=== PATIENT | female | born 1960 | race Caucasian/White ===

== ENCOUNTER 2021-02-20 08:58 | Day surgery (SDC) | payer BC ==
[~2021-02-20 08:58] MED LIST: Lactated Ringers 1,000 ML IV SCH; Lidocaine 2% 5 ML SDV ONE; Ondansetron 4 MG/2 ML SDV ONE; Sodium Chloride 0.9% 10 ML Syringe FLUSH PRN; Sodium Chloride 0.9% 2.5 ML Syringe FLUSH PRN; Sodium Chloride 0.9% 20 ML SDV IV PRN; fentaNYL 100 MCG/2 ML SDV ONE; propofoL 50 ML ONE
--- NOTE | 2021-02-20 09:33 | PCM.PREANE ---
Preanesthetic Assessment - Anesthesia/Transfusion/Family Hx Anesthesia History: Prior Anesthesia Without Reaction Other Type of Anesthesia Reaction Comment: DENIES ANY PROBLEMS WITH ANESTHESIA Transfusion History: No Prior Transfusion(s) - Review of Systems General: No Symptoms Pulmonary: No Symptoms Cardiovascular: No Symptoms Gastrointestinal: No Symptoms Neurological: No Symptoms Other: Reports: Anxiety - Physical Assessment NPO Status Date: 02/20/21 NPO Status Time: 00:00 Vital Signs: Last Vital Signs Temp 96.6 F L 02/20/21 09:13 Pulse 102 H 02/20/21 09:13 Resp 16 02/20/21 09:13 BP 120/84 02/20/21 09:13 Pulse Ox 98 02/20/21 09:13 Height: 5 ft 3 in Weight: 191 lb ASA Class: 2 Mental Status: Alert & Oriented x3 Airway Class: Mallampati = 2 Dentition: Reports: [place](s), Implants Thyro-Mental Finger Breadths: 2 Mouth Opening Finger Breadths: 3 ROM/Head Extension: Full Lungs: Clear to Auscultation, Normal Respiratory Effort Cardiovascular: Regular Rate, Regular Rhythm - Allergies Allergies/Adverse Reactions: Allergies Allergy/AdvReac Type Severity Reaction Status Date / Time No Known Allergies Allergy Verified 02/14/21 11:29 - Acknowledgements Anesthesia Type Planned: General Anesthesia Pt an Appropriate Candidate for the Planned Anesthesia: Yes Alternatives and Risks of Anesthesia Discussed w Pt/Guardian: Yes Pt/Guardian Understands and Agrees with Anesthesia Plan: Yes PreAnesthesia Questionnaire HEENT History: Reports: Other (See Below) Other HEENT History: wears glasses, contacts Cardiovascular History: Reports: None Respiratory History: Reports: None Gastrointestinal History: Reports: Colon Polyp, GERD Genitourinary History: Reports: None HUMAN RESOURCE OFFICER History: Reports: None Musculoskeletal History: Reports: Fracture Other Musculoskeletal History: hx of fx foot Neurological History: Reports: MS, Other (See Below) Other Neuro History: restless leg syndrome Psychiatric History: Reports: Anxiety, Depression Endocrine/Metabolic History: Reports: Obesity/BMI 30+ Other Endocrine/Metabolic History: MS Hematologic History: Reports: B12 Deficiency Immunologic History: Reports: None Oncologic (Cancer) History: Reports: None Dermatologic History: Reports: None - Infectious Disease History Infectious Disease History: Reports: None - Past Surgical History Head Surgeries/Procedures: Reports: None HEENT Surgical History: Reports: Oral Surgery, Tonsillectomy Other HEENT Surgeries/Procedures: has 6 upper dental implants- 3 on each side, has 1 lower dental implant GI Surgical History: Reports: Bariatric Procedure, Colonoscopy Other GI Surgeries/Procedures: has implanted gastric lap band Female Surgical History: Reports: Hysterectomy, Salpingo-Oophorectomy Neurological Surgical History: Reports: Spinal Fusion Musculoskeletal Surgical History: Reports: ORIF Other Musculoskeletal Surgeries/Procedures:: ORIF foot- no hardware - SUBSTANCE USE Tobacco Use Status *Q: Former Tobacco User Tobacco Use Within Last Twelve Months: No Recreational Drug Use History: No - HOME MEDS Home Medications: Home Meds Cyanocobalamin (Vitamin B12) [Vitamin B12] 1,000 mcg IM ASDIRECTED 02/14/21 [History] LORazepam [Ativan] 0.5 mg PO BEDTIME 02/14/21 [History] Omeprazole 20 mg PO DAILY PRN 02/14/21 [History] Teriflunomide [Aubagio] 14 mg PO DAILY 02/14/21 [History] Venlafaxine HCl 75 mg PO TID 02/14/21 [History] cloNIDine HCL [Clonidine HCl] 0.1 mg PO BID 02/14/21 [History] rOPINIRole HCl [Ropinirole ER] 1 mg PO BEDTIME 02/14/21 [History] - CURRENT (IN HOUSE) MEDS Current Meds: Current Medications Lactated Ringer's (Ringers, Lactated) 1,000 mls @ 125 mls/hr IV ASDIRECTED [facility] Last Admin: 02/20/21 09:15 Dose: 125 mls/hr Documented by: Sodium Chloride (Sodium Chloride 0.9% 10 Ml Syringe) 10 ml FLUSH ASDIRECTED PRN PRN Reason: Keep Vein Open Sodium Chloride (Sodium Chloride 0.9% 2.5 Ml Syringe) 2.5 ml FLUSH ASDIRECTED PRN PRN Reason: Keep Vein Open Sodium Chloride (Sodium Chloride 0.9% 10 Ml Syringe) 10 ml FLUSH ASDIRECTED PRN PRN Reason: Keep Vein Open Sodium Chloride (Sodium Chloride 0.9% 2.5 Ml Syringe) 2.5 ml FLUSH ASDIRECTED PRN PRN Reason: Keep Vein Open Sodium Chloride (Sodium Chloride 0.9% 20 Ml Sdv) 10 ml IV ASDIRECTED PRN PRN Reason: IV Use Discontinued Medications Fentanyl (Fentanyl 100 Mcg/2 Ml Sdv) Confirm Administered Dose 100 mcg .ROUTE .STK-MED ONE Stop: 02/20/21 08:52 Propofol (Diprivan 50 Ml) Confirm Administered Dose 50 mls @ as directed .ROUTE .STK-MED ONE Stop: 02/20/21 07:17 Lidocaine (Lidocaine 2% 5 Ml Sdv) Confirm Administered Dose 5 ml .ROUTE .STK-MED ONE Stop: 02/20/21 08:56 Ondansetron HCl (Ondansetron 4 Mg/2 Ml Sdv) Confirm Administered Dose 4 mg .ROUTE .STK-MED ONE Stop: 02/20/21 08:56
[2021-02-20] MEDS ORDERED: fentaNYL 100 MCG/2 ML SDV ONE (10:12)
[2021-02-20] MEDS ORDERED: Midazolam 1 MG/ML 2 ML SDV ONE (10:15)
--- NOTE | 2021-02-20 10:55 | PCM.POSTAN ---
POST ANESTHESIA ASSESSMENT - MENTAL STATUS Mental Status: Alert, Oriented - VITAL SIGNS Vital Signs: Last Vital Signs Temp 96.6 F L 02/20/21 09:13 Pulse 102 H 02/20/21 09:13 Resp 16 02/20/21 09:13 BP 120/84 02/20/21 09:13 Pulse Ox 98 02/20/21 09:13 - RESPIRATORY Respiratory Status: Respiratory Rate WNL, Airway Patent, O2 Saturation Stable - CARDIOVASCULAR CV Status: Pulse Rate WNL, Blood Pressure Stable - GASTROINTESTINAL GI Status: No Symptoms - POST OP HYDRATION Hydration Status: Adequate & Stable
--- NOTE | 2021-02-20 10:55 | PCM48HPAN ---
Post Anesthesia Note - EVALUATION WITHIN 48HRS OF ANESTHETIC Vital Signs in Normal Range: Yes Patient Participated in Evaluation: Yes Respiratory Function Stable: Yes Airway Patent: Yes Cardiovascular Function Stable: Yes Hydration Status Stable: Yes Pain Control Satisfactory: Yes Nausea and Vomiting Control Satisfactory: Yes Mental Status Recovered: Yes Vital Signs: Last Vital Signs Temp 96.6 F L 02/20/21 09:13 Pulse 102 H 02/20/21 09:13 Resp 16 02/20/21 09:13 BP 120/84 02/20/21 09:13 Pulse Ox 98 02/20/21 09:13
--- NOTE | 2021-02-20 11:02 | PCM.OPNOTE ---
- General Post-Op/Procedure Note Date of Surgery/Procedure: 02/20/21 Operative Procedure(s): Diagnostic EGD and screening colonoscopy Findings: Presbyesophagus with food and liquid throughout. Nodular chronically inflamed appearance of esophagus. Unable to pass scope through the band. Transverse colon polyp, sigmoid colon polyp x 2 Pre Op Diagnosis: Reflux, history of colon polyp Post-Op Diagnosis: Presbyesophagus, esophagitis, transverse colon polyp x 1, sigmoid colon polyp x 2 Anesthesia Technique: General Mask Primary Surgeon: Jessika Banerjee Condition: Good
[2021-02-20 11:03] VITALS: BP 98/55; PULSE 72
--- NOTE | 2021-02-20 16:23 | OR ---
SURGEON: JESSIKA BANERJEE MD DATE OF PROCEDURE: 02/20/2021 PREOPERATIVE DIAGNOSES: 1. Reflux. 2. History of colon polyps. POSTOPERATIVE DIAGNOSES: 1. Presbyesophagus. 2. Esophagitis. 3. Transverse colon polyp x1. 4. Sigmoid colon polyp x2. PROCEDURES PERFORMED: Diagnostic esophagogastroduodenoscopy and screening colonoscopy. PRIMARY SURGEON: Jessika Banerjee MD ANESTHESIA: General mask. INSTRUMENTS USED: Olympus endoscope and colonoscope. EXTENT OF EXAM: To the proximal stomach, to the duodenum. PREPARATION: Good. LIMITATIONS: Obstruction at the level of the gastric band in the stomach. COMPLICATIONS: None. INDICATIONS: Patient is a 60-year-old female who presented to my clinic in need of a repeat colonoscopy for a history of colon polyps. Upon gathering the patient's history, it was discovered that she has a gastric band in place. When I asked her about this, she did note some reflux-type symptoms. I explained that it would probably benefit her to undergo a diagnostic EGD to look for any signs of reflux. The patient verbalized understanding. I explained both procedures, the expected perioperative course, and the risks. She verbalized understanding and wished to proceed. PROCEDURE IN DETAIL: The patient was brought in to the endoscopy suite and placed in a left lateral decubitus position. A time-out was completed verifying the patient's name, age, date of , allergies, and procedure to be performed. Anesthesia was induced. Continuous oxygen was provided via nasal cannula throughout the procedure. After adequate sedation was achieved, a well-lubricated endoscope was placed in the patient's mouth and advanced under direct visualization. Immediately upon entering the esophagus, I noted a large amount of food and liquid within the esophagus. I quickly suctioned this out and the patient was positioned in a way to prevent aspiration. I continued to suction out as much food and fluid as I could. The esophagus was dilated and appeared chronically inflamed with nodularity throughout the length of the esophagus. Upon entering the stomach, the patient was noted to have a normal-appearing pouch, however, the gastric band was so tight that I could not transverse through the opening. There was solid food and liquid within the proximal gastric pouch. The decision was made to not attempt to proceed any further. The scope was brought into the esophagus and at 30 cm from the teeth, a biopsy was taken and sent to Pathology for histologic review. Multiple photographs were taken throughout the case. The scope was removed and this portion of procedure terminated. A digital rectal exam was performed. This exam was grossly normal. A well-lubricated colonoscope was inserted in the rectum and advanced under direct visualization to the level of the cecum. The cecum was identified by both visual and anatomic landmarks. A photograph was taken of the cecal cap, however, I was unable to retroflex the scope within the cecum. The scope was then fully withdrawn while examining the color, texture, anatomy, and integrity of the mucosa from the cecum to the anal canal. The patient was found to have three sessile polyps, one in the transverse colon and two in the sigmoid colon. Both were removed using hot snares. The scope was brought into the rectum and retroflexed to allow visualization of the anal canal opening. This appeared normal and a photograph was taken. The scope was then straightened out and fully withdrawn. Cecum to anus time was 15 minutes. The patient tolerated the procedure well and was transferred to the PACU in stable condition. ENDOSCOPIC DIAGNOSES: 1. Presbyesophagus. 2. Esophagitis. 3. Transverse colon polyp x1. 4. Sigmoid colon polyp x2. RECOMMENDATIONS: Given that the patient appeared obstructed during my EGD, the decision was made to remove all of fluid from her gastric band. I sterilely prepped her abdomen over her port site. I accessed the port with a Grande needle. 5 mL of fluid were removed. After the procedure, I had the patient drink some water. She was able to take this down without any difficulty. We will keep the band deflated for now, and likely we will refer the patient on to Bariatric Surgery for further diagnosis and evaluation. We will follow up with the patient in clinic in two weeks. RUBINA / SERENITY /[id number]
== END 2021-02-20 11:26 | disposition home or self-care (01) ==
LOC: MW.SDS 08:58
PROVIDERS: ATTEND Surgery
DX: Z12.11 Encounter for screening for malignant neoplasm of colon (principal); D12.3 Benign neoplasm of transverse colon; D12.5 Benign neoplasm of sigmoid colon; K21.00 Gastro-esophageal reflux disease with esophagitis, without bleeding; K22.89 Other specified disease of esophagus; E66.9 Obesity, unspecified; Z87.891 Personal history of nicotine dependence
CPT/HCPCS: 43239; 45385; J2250; J2405; J2704; J3010; J7120

== ENCOUNTER 2022-02-18 13:51 | Emergency (ER) | payer BC ==
[2022-02-18] MEDS ORDERED: Sodium Chloride 0.9% 10 ML Syringe FLUSH PRN (16:22)
[2022-02-18] MEDS ORDERED: Sodium Chloride 0.9% 2.5 ML Syringe FLUSH PRN (16:22)
[2022-02-18 16:33] LABS: CORONAVIRUS COVID-19 NAA NEGATIVE (NEGATIVE); INFLUENZA A NAA NEGATIVE (NEGATIVE); INFLUENZA B NAA NEGATIVE (NEGATIVE); RESPIRATORY SYNCYTIAL VIR NAA NEGATIVE (NEGATIVE)
[2022-02-18 19:52] LABS: CARBON DIOXIDE,CO2 25.8 mmol/L (21.0-32.0)
[2022-02-18] MEDS ORDERED: Iopamidol 755 MG/ML 500 ML Multipack Bottle IVPUSH STA (20:18)
[2022-02-18 22:38] VITALS: BP 153/80; PULSE 78
== END 2022-02-18 21:20 | disposition home or self-care (01) ==
LOC: MW.ED 13:51
DX: R06.02 Shortness of breath (principal); K21.9 Gastro-esophageal reflux disease without esophagitis; E66.9 Obesity, unspecified; Z68.41 Body mass index [BMI] 40.0-44.9, adult; Z88.8 Allergy status to other drugs, medicaments and biological substances; Z79.899 Other long term (current) drug therapy; Z20.822 Contact with and (suspected) exposure to COVID-19
CPT/HCPCS: 0241U; 36415; 71045; 71275; 80053; 81001; 83735; 83880; 84484; 85025; 85379; 85610; 99285; J3490; Q9967; 93010; 99284

== ENCOUNTER 2024-08-22 14:29 | Emergency (ER) | payer BC ==
[2024-08-22 16:09] VITALS: BP 159/119; PULSE 65
[2024-08-22] MEDS ORDERED: Sodium Chloride 0.9% 2.5 ML Syringe FLUSH PRN (16:34)
[2024-08-22] MEDS ORDERED: Sodium Chloride 0.9% 20 ML SDV IV PRN (16:34)
[2024-08-22] MEDS ORDERED: Sodium Chloride 0.9% 10 ML Syringe FLUSH PRN (16:34)
[2024-08-22 18:02] LABS: BASOPHILS ABSOLUTE AUTO 0.06 K/uL (0.00-0.20); BASOPHILS PERCENT AUTO 0.5 % (0.0-1.0); EOSINOPHILS ABSOLUTE AUTO 0.11 K/uL (0.00-0.45); EOSINOPHILS PERCENT AUTO 0.8 % (0.0-6.0); HEMATOCRIT 46.7 % (37.0-47.0); HEMOGLOBIN 15.9 g/dL (12.0-16.0); IMMATURE GRAN ABSOLUTE AUTO 0.05 K/uL (0.00-0.05); IMMATURE GRAN PERCENT AUTO 0.4 % (0.0-0.4); LYMPHOCYTES ABSOLUTE AUTO 2.04 K/uL (1.00-4.80); LYMPHOCYTES PERCENT AUTO 15.7 % (24.0-44.0); MEAN CORPUSCULAR HEMOGLOBIN 29.3 pg (28.0-32.0); MEAN PLATELET VOLUME 10.5 fL (9.4-12.3); MONOCYTES ABSOLUTE AUTO 1.03 K/uL (0.00-0.80); MONOCYTES PERCENT AUTO 7.9 % (0.0-8.0); NEUTROPHILS ABSOLUTE AUTO 9.71 K/uL (1.80-7.70); NEUTROPHILS PERCENT AUTO 74.7 % (41.0-71.0); PLATELET COUNT,PLT 282 K/uL (150-400); RED BLOOD CELL COUNT 5.43 M/uL (4.10-5.30)
[2024-08-22 18:32] LABS: A/G RATIO 1.1 (0.9-1.6); ALBUMIN 3.8 g/dL (3.4-5.0); BILIRUBIN TOTAL 0.7 mg/dL (0.2-1.0); CARBON DIOXIDE,CO2 30.1 mmol/L (21.0-32.0); CREATININE 1.3 mg/dL (0.6-1.0); EST CRCL DRUG DOSING (CG) 35.69 mL/min; MAGNESIUM 2.1 mg/dL (1.8-2.4); POTASSIUM,K 3.9 mmol/L (3.5-5.1); PROTEIN TOTAL,TP 7.2 g/dL (6.4-8.2)
[2024-08-22 18:37] LABS: CALCIUM 8.8 mg/dL (8.5-10.1)
== END 2024-08-22 22:31 | disposition home or self-care (01) ==
LOC: MW.ED 14:29
DX: R60.0 Localized edema (principal); M25.561 Pain in right knee; M25.562 Pain in left knee; K21.9 Gastro-esophageal reflux disease without esophagitis; E66.9 Obesity, unspecified; Z68.42 Body mass index [BMI] 45.0-49.9, adult; Z98.84 Bariatric surgery status; Z90.710 Acquired absence of both cervix and uterus; Z88.8 Allergy status to other drugs, medicaments and biological substances; Z79.899 Other long term (current) drug therapy
CPT/HCPCS: 36415; 80053; 83735; 83880; 84484; 85025; 93970; 93970-26; 99283; 99284